=== PATIENT | female | born 1980 | race Hispanic/Latino ===

== ENCOUNTER 2017-09-17 12:16 | Emergency (ER) | payer SELFPAY ==
[~2017-09-17] VITALS: Ht 157.5 cm; Wt 49.0 kg
[2017-09-17] MEDS ORDERED: LIDOCAINE HCL 1% LOCAL INJ 20 ML VIAL INJ ONE (12:45)
[2017-09-17 13:32] VITALS: BP 112/69
== END 2017-09-17 13:40 | disposition home or self-care (01) ==
LOC: ER 12:16
DX: N76.4 Abscess of vulva (principal); E11.9 Type 2 diabetes mellitus without complications
CPT/HCPCS: 56405; 99282; J2001

== ENCOUNTER 2017-09-20 11:32 | Emergency (ER) | payer SELFPAY ==
[~2017-09-20] VITALS: Ht 157.5 cm; Wt 49.0 kg
== END 2017-09-20 13:16 | disposition home or self-care (01) ==
LOC: ER 11:32
DX: Z48.01 Encounter for change or removal of surgical wound dressing (principal); E11.9 Type 2 diabetes mellitus without complications; F17.210 Nicotine dependence, cigarettes, uncomplicated
CPT/HCPCS: 99282

== ENCOUNTER 2018-01-22 12:12 | Inpatient (IN) | payer SELFPAY ==
[~2018-01-22] VITALS: Ht 157.5 cm; Wt 45.4 kg
[2018-01-22] VITALS (24 sets, daily range): BP systolic 80–106; BP diastolic 48–75
[2018-01-22] MEDS ORDERED: ACETAMINOPHEN 325 MG TAB PO ONE (13:00)
[2018-01-22 13:02] LABS: BASOPHILS # (AUTO) 0.1 (0.0-0.1); BASOPHILS % 0.3 % (0.0-1.0); HEMATOCRIT 34.6 % (34.2-44.1); HEMOGLOBIN 12.4 g/dL (12.0-16.0); LYMPHOCYTES # (AUTO) 1.2 (1.0-3.2); LYMPHOCYTES % 4.7 % (18.0-39.1); MEAN CORPUSCULAR HEMOGLOBIN 31.9 pg (28-32); MEAN CORPUSCULAR HGB CONC 35.8 g/dL (31-35); MEAN CORPUSCULAR VOLUME 88.9 fL (81-99); MONOCYTES # (AUTO) 0.6 (0.2-0.8); MONOCYTES % 2.4 % (4.4-11.3); NEUTROPHILS # (AUTO) 24.2 (2.1-6.9); NEUTROPHILS % 91.4 % (38.7-80.0); PLATELET COUNT 274 x10e3/uL (140-360); RED BLOOD COUNT 3.89 x10e6/uL (3.6-5.1); RED CELL DISTRIBUTION WIDTH 11.1 % (11.7-14.4)
[2018-01-22 13:06] LABS: BILIRUBIN,URINE NEGATIVE (NEGATIVE); CLARITY,URINE HAZY (CLEAR); COLOR,URINE YELLOW (YELLOW); KETONES,URINE 2+ (NEGATIVE); LEUKOCYTE ESTERASE ,URINE 1+ (NEGATIVE); NITRITE,URINE NEGATIVE (NEGATIVE); PROTEIN,URINE DIPSTICK 1+ (NEGATIVE); URINE UROBILINOGEN 0.2 mg/dL (0.2 - 1)
[2018-01-22 13:07] LABS: PREGNANCY TEST, URINE NEGATIVE (NEGATIVE)
[2018-01-22 13:09] LABS: WBC,URINE (MAN) >50 /HPF (0-5)
[2018-01-22 13:10] LABS: BACTERIA,URINE MANY /HPF; EPITHELIAL CELLS,URINE FEW /LPF; MUCUS,URINE MODERATE (RARE)
[2018-01-22 13:11] LABS: TRICHOMONAS,URINE RARE
[2018-01-22 13:12] LABS: YEAST,URINE FEW
[2018-01-22 13:26] LABS: ALANINE AMINOTRANSFERASE 50 IU/L (0-55); ALBUMIN 2.8 g/dL (3.5-5.0); ALBUMIN/GLOBULIN RATIO 0.4 (0.8-2.0); ALKALINE PHOSPHATASE 170 IU/L (40-150); ANION GAP 16.9 mmol/L (8-16); BLOOD UREA NITROGEN 11 mg/dL (7-26); BUN/CREATININE RATIO 13 (6-25); CALCIUM 9.8 mg/dL (8.4-10.2); CARBON DIOXIDE 25 mmol/L (22-29); CHLORIDE 91 mmol/L (98-107); CREATININE, SERUM 0.85 mg/dL (0.57-1.11); EST GLOMERULAR FILTRATION RATE > 60 ML/MIN (60-); POTASSIUM 3.9 mmol/L (3.5-5.1); SODIUM 129 mmol/L (136-145)
[2018-01-22 13:28] LABS: GLUCOSE 452 mg/dL (74-118)
[2018-01-22 13:30] LABS: BAND NEUTROPHILS % (MANUAL) 1 %; LYMPHOCYTES % (MANUAL) 7 % (19-48); MONOCYTES % (MANUAL) 4 % (3.4-9.0); NEUTROPHILS % (MANUAL) 86 % (40-74); PLATELET ESTIMATE ADEQUATE; PLATELET MORPHOLOGY COMMENT NORMAL; RBC MORPHOLOGY COMMENT NORMAL
[2018-01-22] MEDS ORDERED: SODIUM CHLORIDE 0.9% 1000ML 1,000 ML IV ONE (13:30)
--- NOTE | 2018-01-22 13:30 | NUR ---
PT REPORT RECEIVED FROM JEANNE LANGSTON. PT CARE ASSUMED
[2018-01-22] MEDS ORDERED: IBUPROFEN 600 MG TAB PO ONE (14:00)
[2018-01-22] MEDS ORDERED: AZTREONAM 1 GM/NS 50 ML 50 ML IV SCH (14:00)
[2018-01-22] MEDS ORDERED: FLUCONAZOLE 100 MG TAB PO ONE (14:00)
[2018-01-22] MEDS ORDERED: METRONIDAZOLE 500MG/NS 100ML 100 ML IV SCH (14:00)
[2018-01-22] MEDS ORDERED: INSULIN REGULAR, HUMAN 100 UNIT/1 ML 3ML VIAL IV ONE (14:15)
--- NOTE | 2018-01-22 14:20 | NUR ---
Dr. Ant De La Cruz here at this time, assessing pt.
[2018-01-22] MEDS ORDERED: DEXTROSE 50% SYRINGE 50 ML IV PRN (14:30)
[2018-01-22] MEDS ORDERED: ONDANSETRON HCL INJ 2MG/ML 2ML 2 MG/ML VIAL IV PRN (14:30)
[2018-01-22] MEDS: SODIUM CHLORIDE 0.9% 1000ML 1,000 ML IV SCH (14:37)
--- NOTE | 2018-01-22 14:58 | Diagnostic Imaging Report ---
EXAMINATION: PA and lateral views of the chest. COMPARISON: None CLINICAL HISTORY: Sepsis, numbness in arms, fever DISCUSSION: Lines/tubes: None. Lungs: The lungs are well inflated and clear. There is no evidence of pneumonia or pulmonary edema. Pleura: There is no pleural effusion or pneumothorax. Heart and mediastinum: Cardiomediastinal silhouette is unremarkable. Pulmonary vasculature is normal. Bones and soft tissues: No acute bony abnormalities. IMPRESSION: No acute cardiopulmonary abnormalities. Signed by: Dr. Philip Diana M.D. on 01/22/2018 2:55 PM
--- NOTE | 2018-01-22 15:19 | NUR ---
2ND IV LINE STARTED FOR INSULIN DRIP
[2018-01-22] MEDS: MORPHINE SULFATE 2 MG/ML SYR 1ML IV PRN ×2 (16:11→19:56)
[2018-01-22] MEDS: INSULIN REGULAR, HUMAN 3ML VL 100 UNIT in SODIUM CHLORIDE 0.9% 99 ML IV SCH ×2 (16:11)
[2018-01-22] MEDS ORDERED: SODIUM CHLORIDE 0.9% 500ML 500 ML IV ONE (17:15)
--- NOTE | 2018-01-22 17:56 | History and Physical ---
CHIEF COMPLAINT: Numbness in the arms and legs. HISTORY OF PRESENT ILLNESS: The patient is a 37-year-old woman with a history of diabetes and recurrent Bartholin cyst. She has been feeling feverish over the last couple of days. She also reports some numbness in her arm and leg. She notes some drainage from labia on the right side and says she has had Bartholin cyst before that she has drained herself. She arrived in the ER and had a temperature of 102.1. Her pulse was 122. She was found to have a white blood cell count of 26 along with a blood sugar of 452 and elevated anion gap. PAST MEDICAL HISTORY 1. Diabetes. 2. Genital herpes. 3. Bartholin cyst in the past. PAST SURGICAL HISTORY: Status post drainage of the Bartholin cyst. FAMILY HISTORY: Noncontributory. ALLERGIES: THE PATIENT IS ALLERGIC TO PENICILLIN. REVIEW OF SYSTEMS: The patient has fevers. She has no headache. She has no neck pain. She is not having any chest pain. She has no difficulty breathing. She is not complaining of abdominal pain, nausea, or vomiting. She does note some numbness and pain in her right hand as well as in her right leg. She notes some drainage from her labia. PHYSICAL EXAMINATION VITAL SIGNS: The patient is afebrile, but had previous fever of 102.1. Her pulse is 122. HEENT: Shows no facial swelling or erythema. The nasal mucosa is normal. The oropharynx is normal. LYMPHATIC: Shows no submandibular, cervical, or supraclavicular adenopathy. NECK: Shows no JVD or thyromegaly. There is no nuchal rigidity. CARDIOVASCULAR: Reveals regular rate and rhythm with normal S1 and S2. There are no murmurs or rubs. RESPIRATORY: Auscultation of the lungs revealed clear breath sounds bilaterally. There is no wheezing. ABDOMEN: Soft and nontender. There is no rebound or guarding. EXTREMITIES: There is no leg edema or calf tenderness. There is no cyanosis or clubbing. SKIN: Shows no rashes. NEUROLOGIC: Shows no focal abnormalities. LABORATORY DATA: White blood cell count in the urine is greater than 50. The white blood cell count is 26.5 and hemoglobin is 12.4. The platelet count is 274. The sodium is 129 and the carbon dioxide is 25. The chloride is 91 and anion gap is elevated at 16. RADIOGRAPHIC DATA: Chest x-ray shows no acute disease. ASSESSMENT 1. Severe sepsis secondary to urinary source. 2. Diabetic ketoacidosis. 3. Bartholin cyst with spontaneous drainage. PLAN 1. Patient will be admitted to the intensive care unit. 2. Aggressive IV fluids. 3. Insulin drip with close monitoring of blood sugars and electrolytes. 4. Begin full-spectrum antibiotics. 5. Gynecology consult for drainage of the Bartholin cyst. Job#: [id number] TRAE
--- NOTE | 2018-01-22 17:56 | NUR ---
admitted to 192 from er per stretcher. walked to bed from stretcher. connected to monitors. pt has pink flat small lesions on extremities, torso. rt labia c small amount of dk red drainage from abscess which pt states she punctured because of pain. states she has had an abscess drained previously at the hospital, and it came back causing her pain. labia are pale c whitish secretions. #20 g sl to lac (for atbs), #18 g to left wrist for mainline iv and insulin drip. the perineum and buttocks areas have excoriations. oriented to surroundings and care.
--- NOTE | 2018-01-22 18:10 | NUR ---
family at bedside
--- NOTE | 2018-01-22 18:55 | NUR ---
report to oncoming nurse
[2018-01-22] MEDS: ACYCLOVIR SODIUM IV SCH (19:00)
[2018-01-22] MEDS: SODIUM CHLORIDE 0.9% IV SCH (19:00)
--- NOTE | 2018-01-22 19:04 | NUR ---
notified human factors ergonomist physician for dr. cabrera who stated to call dr cabrera on wednesday, as this physician does not have priviledges at this hospital
--- NOTE | 2018-01-22 19:10 | NUR ---
notified dr asif of pt s admission. states he was notified by er and has already seen pt
--- NOTE | 2018-01-22 20:35 | Consultation ---
DATE OF CONSULTATION: January 22, 2018 INFECTIOUS DISEASE CONSULTATION ATTENDING PHYSICIAN: Dr. Ag De La Cruz. REASON FOR CONSULTATION: Sepsis. Thank you, Dr. De La Cruz for asking me to see this patient. CLINICAL HISTORY: The patient is a 37-year-old woman, referred for sepsis. She presented to emergency department with fever associated with generalized joint pain. Also, she has started noticing water blisters. Patient denies cough, shortness of breath, nausea, vomiting, abdominal pain, and dysuria. The patient has genital herpes and has developed new blisters in the past 4 days and started taking acyclovir 1 g orally daily. She does not recall HIV screening in the past and has switched boyfriends. PAST MEDICAL HISTORY: Diabetes mellitus type 2 and genital herpes. PAST SURGICAL HISTORY: section. ALLERGIES: PENICILLIN WHICH CAUSED RASH. MEDICATIONS: See MAR. The current antibiotics are aztreonam 1 g IV piggyback q.12 hours, vancomycin 1 g IV piggyback q.12 hours, and metronidazole 500 mg IV piggyback q.8 hours. Patient also received fluconazole in the emergency room. IMMUNIZATIONS: Patient has not received influenza vaccine this season. FAMILY HISTORY: Significant for diabetes mellitus in her father. SOCIAL HISTORY: She claimed that she cut down smoking to 1 or 2 cigarettes a week. She claimed that she used to smoke 5 cigarettes a day in the past. Also, she claimed that she cut down drinking to 1 beer a week, she used to drink 5 beers in a sitting usually on weekends. REVIEW OF SYSTEMS: As per history of present illness. PHYSICAL EXAMINATION GENERAL: Acutely ill. VITAL SIGNS: T-max 102.1, pulse 102, respiratory rate 18, blood pressure 102/67, and weight 100 pounds. HEENT: Normocephalic. There is no icterus or injection of conjunctivae. There is no ear or nasal discharge. Moist oral mucosa. No pharyngeal erythema or exudate. NECK: Supple. No lymphadenopathy. LUNGS: Good air entry bilaterally. HEART: Normal S1 and S2. ABDOMEN: Normal bowel sounds in all 4 quadrants. Soft and nontender. EXTREMITIES: There is no clubbing, or cyanosis. There is swilling with mild tenderness on palpation of the wrists bilaterally, but no effusion of the joints. The dorsalis pedis and posterior tibial pulses are palpable. SKIN: There are multiple tiny blisters on red base on the limbs and upper chest. There are also some lesions on the palm. CHIEF FISHERY DIVISION: Awake, alert, and oriented to person, place, and time. Sensation is normal to monofilament test of the feet. Nonfocal. LABORATORY AND DIAGNOSTICS: WBC 26,530, hemoglobin 12.4, platelet 274,000, neutrophils 91.4, lymph 4.7, mono 2.4, eosinophils 0, and basophils 0.3. BUN 11, creatinine 0.85, blood glucose 264 (down from 452). AST 46, ALT 50, alk phos 170, total bilirubin 0.7, total protein 9.1, albumin 2.8, globulin 6.3. Urinalysis is abnormal with wbc's greater than 50 and rbc's 11 to 20. Influenza antigen test is negative. Chest x-ray showed no evidence of pneumonia or pulmonary edema. IMPRESSION 1. Sepsis. 2. ?Chickenpox versus disseminated herpes simplex, type 2. 3. Diabetes mellitus type 2, uncontrolled. 4. Tobacco use disorder. PLAN 1. Check HIV screen and culture results. 2. Stop vancomycin and metronidazole. Start acyclovir 5 mg/kg IV piggyback q.8 hours. Change Azactam to 1 g IV piggyback q.8 hours. Patient should receive influenza vaccine prior to discharge. 3. Smoking cessation counseling was provided to the patient. 4. Airborne isolation. Job#: [id number] LAKIA SMITH
[2018-01-22] MEDS ORDERED: VANCOMYCIN 1GM/NS 250 ML 250 ML IV SCH (21:00)
[2018-01-22] MEDS: AZTREONAM 1 GM/NS 50 ML 50 ML IV SCH (22:15)
[2018-01-22 23:48] LABS: BASOPHILS # (AUTO) 0.1 (0.0-0.1); BASOPHILS % 0.3 % (0.0-1.0); EOSINOPHILS # (AUTO) 0.1 (0.0-0.4); EOSINOPHILS % 0.4 % (0.0-6.0); HEMATOCRIT 27.5 % (34.2-44.1); HEMOGLOBIN 9.7 g/dL (12.0-16.0); LYMPHOCYTES # (AUTO) 1.4 (1.0-3.2); LYMPHOCYTES % 7.2 % (18.0-39.1); MEAN CORPUSCULAR HGB CONC 35.3 g/dL (31-35); MEAN CORPUSCULAR VOLUME 90.8 fL (81-99); MONOCYTES # (AUTO) 0.8 (0.2-0.8); MONOCYTES % 4.1 % (4.4-11.3); NEUTROPHILS # (AUTO) 16.9 (2.1-6.9); NEUTROPHILS % 86.9 % (38.7-80.0); PLATELET COUNT 185 x10e3/uL (140-360); RED BLOOD COUNT 3.03 x10e6/uL (3.6-5.1); RED CELL DISTRIBUTION WIDTH 11.2 % (11.7-14.4)
[2018-01-23] VITALS (68 sets, daily range): BP systolic 85–134; BP diastolic 58–96
[2018-01-23 00:10] LABS: ALANINE AMINOTRANSFERASE 49 IU/L (0-55); ALBUMIN/GLOBULIN RATIO 0.4 (0.8-2.0); ALKALINE PHOSPHATASE 123 IU/L (40-150); BLOOD UREA NITROGEN 15 mg/dL (7-26); BUN/CREATININE RATIO 22 (6-25); CARBON DIOXIDE 22 mmol/L (22-29); CHLORIDE 104 mmol/L (98-107); CREATININE, SERUM 0.67 mg/dL (0.57-1.11); EST GLOMERULAR FILTRATION RATE > 60 ML/MIN (60-); GLUCOSE 211 mg/dL (74-118); SODIUM 135 mmol/L (136-145)
[2018-01-23 00:22] LABS: CALCIUM 8.2 mg/dL (8.4-10.2)
[2018-01-23] MEDS: SODIUM CHLORIDE 0.9% 1000ML 1,000 ML IV SCH ×4 (00:28→19:41)
[2018-01-23] MEDS: ACYCLOVIR SODIUM IV SCH ×3 (00:38→17:39)
[2018-01-23] MEDS: SODIUM CHLORIDE 0.9% IV SCH ×3 (00:38→17:39)
[2018-01-23 04:54] LABS: BASOPHILS % 0.1 % (0.0-1.0); EOSINOPHILS # (AUTO) 0.2 (0.0-0.4); EOSINOPHILS % 0.9 % (0.0-6.0); HEMATOCRIT 27.5 % (34.2-44.1); HEMOGLOBIN 9.4 g/dL (12.0-16.0); LYMPHOCYTES # (AUTO) 1.5 (1.0-3.2); LYMPHOCYTES % 8.4 % (18.0-39.1); MEAN CORPUSCULAR HEMOGLOBIN 31.4 pg (28-32); MEAN CORPUSCULAR HGB CONC 34.2 g/dL (31-35); MONOCYTES % 5.6 % (4.4-11.3); NEUTROPHILS # (AUTO) 14.5 (2.1-6.9); PLATELET COUNT 192 x10e3/uL (140-360); RED BLOOD COUNT 2.99 x10e6/uL (3.6-5.1); RED CELL DISTRIBUTION WIDTH 11.5 % (11.7-14.4)
[2018-01-23 05:14] LABS: ANION GAP 11.3 mmol/L (8-16); BLOOD UREA NITROGEN 14 mg/dL (7-26); BUN/CREATININE RATIO 23 (6-25); CALCIUM 8.2 mg/dL (8.4-10.2); CARBON DIOXIDE 23 mmol/L (22-29); CHLORIDE 104 mmol/L (98-107); EST GLOMERULAR FILTRATION RATE > 60 ML/MIN (60-); GLUCOSE 110 mg/dL (74-118); POTASSIUM 3.3 mmol/L (3.5-5.1); SODIUM 135 mmol/L (136-145)
[2018-01-23] MEDS: AZTREONAM 1 GM/NS 50 ML 50 ML IV SCH ×3 (06:14→21:07)
[2018-01-23] MEDS: MORPHINE SULFATE 2 MG/ML SYR 1ML IV PRN (08:09)
[2018-01-23] MEDS: INSULIN REGULAR, HUMAN 3ML VL 100 UNIT in SODIUM CHLORIDE 0.9% 99 ML IV SCH ×6 (10:06→14:51)
--- NOTE | 2018-01-23 10:13 | NUR ---
Consult called to Dr Franklin for wrist pain.
--- NOTE | 2018-01-23 10:22 | NUR ---
Spoke with Faisal with answering service for Dr Franklin regarding consult.
[2018-01-23] MEDS ORDERED: POTASSIUM CHLORIDE 20 MEQ TAB CR PO ONE (10:30)
--- NOTE | 2018-01-23 10:50 | Diagnostic Imaging Report ---
Exam: Right wrist Series. History: Right wrist pain Comparison: None. Findings: 3 views of the right wrist. There is normal bone mineralization. Negative for acute, displaced fracture or dislocation. The joint spaces are normal. No abnormal soft tissue calcification or mass. No soft tissue swelling. Impression: 1. No acute abnormalities. Signed by: Dr. Philip Diana M.D. on 01/23/2018 10:46 AM
--- NOTE | 2018-01-23 10:50 | Diagnostic Imaging Report ---
Exam: Right Hand Series. History: Right and pain Comparison: None. Findings: 3 views of the right hand. There is normal bone mineralization. Negative for acute, displaced fracture or dislocation. The joint spaces are normal. No abnormal soft tissue calcification or mass. No cystic erosive changes.No soft tissue swelling. Impression: 1. No acute abnormalities. Signed by: Dr. Philip Diana M.D. on 01/23/2018 10:47 AM
[2018-01-23] MEDS: INSULIN LISPRO 100 UNIT/1 ML 3ML VIAL SQ SCH ×2 (14:43→21:03)
[2018-01-23 14:47] LABS: FREE T4 (FREE THYROXINE) 0.99 ng/dL (0.9-1.8); THYROID STIMULATING HORMONE 0.782 uIU/mL (0.350-4.940)
[2018-01-23] MEDS: HYDROCODONE/APAP 5MG-325MG TAB PO PRN (15:08)
[2018-01-23] MEDS ORDERED: KETOROLAC TROMETHAMINE 30 MG/ML VIAL IV ONE (15:30)
--- NOTE | 2018-01-23 17:00 | NUR ---
Insulin gtt off per Dr Mosley. Per IVIS Correa, consult for Dafashy must be called Wednesday a.m. per the assistant golf professional physician. territory account executive made aware.
--- NOTE | 2018-01-23 18:29 | Consultation ---
DATE OF CONSULTATION: January 23, 2018 ENDOCRINE CONSULTATION PATIENT OF: Dr. De La Cruz. Thank you very much for referring this patient. HISTORY OF PRESENT ILLNESS: This is a 37-year-old female who is referred to me for evaluation of diabetes mellitus. Patient is a known diabetic for almost 9 years and was on oral hypoglycemics in the past. She has not taken any medications for diabetes because she does not have an insurance for a year or so. She came to the hospital this time with history of severe joint pains, fever, nausea, vomiting and further evaluation of blood sugar was found to be 452, anion gap was 16.9. Patient admitted to the hospital for further evaluation. Patient also has some sepsis and also some labial infection, probably related to herpes. PHYSICAL EXAMINATION GENERAL: Today, the patient is alert, awake, a little bit apprehensive. VITAL SIGNS: Heart rate is around 78, blood pressure 130/80. HEENT: Essentially unremarkable. Thyroid is barely palpable. Clinically, she is near euthyroid. CHEST: Diminished bilateral vesicular breathing. She has mild bronchospasm. CARDIAC: Both 1st and 2nd heart sounds. There is no 3rd or 4th heart sound. Ejection sound 3/6. EXTREMITIES: Patient has tenderness in both wrist joints. LABS: The blood sugars presently are in the ranges of 114 to 229. CLINICAL IMPRESSION 1. Diabetes mellitus type 2. 2. Diabetic ketoacidosis. 3. Joint pains. 4. Arthritis. 5. Sepsis. 6. Vulvar yeast or herpes zoster infection. PLAN: The plan at this time is to advance her diet, taper off the insulin dose, put her on the subcu insulin combination, Levemir and Humalog. We will also do a hemoglobin A1c and thyroid function test. Thanks for referring this patient. I will be following the patient with you. Job#: [id number] LAKIA SMITH
[2018-01-23] MEDS ORDERED: INSULIN DETEMIR 100 UNIT/ML PEN SQ SCH (21:00)
[2018-01-24] VITALS (27 sets, daily range): BP systolic 108–141; BP diastolic 79–98
[2018-01-24] MEDS: ACYCLOVIR SODIUM IV SCH ×2 (00:01→09:14)
[2018-01-24] MEDS: SODIUM CHLORIDE 0.9% IV SCH ×2 (00:01→09:14)
[2018-01-24 04:50] LABS: BASOPHILS % 0.1 % (0.0-1.0); EOSINOPHILS # (AUTO) 0.1 (0.0-0.4); EOSINOPHILS % 1.5 % (0.0-6.0); HEMOGLOBIN 8.8 g/dL (12.0-16.0); LYMPHOCYTES # (AUTO) 0.8 (1.0-3.2); LYMPHOCYTES % 9.1 % (18.0-39.1); MEAN CORPUSCULAR HEMOGLOBIN 31.5 pg (28-32); MEAN CORPUSCULAR HGB CONC 33.8 g/dL (31-35); MEAN CORPUSCULAR VOLUME 93.2 fL (81-99); MONOCYTES # (AUTO) 0.6 (0.2-0.8); MONOCYTES % 7.1 % (4.4-11.3); NEUTROPHILS # (AUTO) 7.2 (2.1-6.9); NEUTROPHILS % 81.6 % (38.7-80.0); PLATELET COUNT 193 x10e3/uL (140-360); RED BLOOD COUNT 2.79 x10e6/uL (3.6-5.1); RED CELL DISTRIBUTION WIDTH 11.8 % (11.7-14.4)
[2018-01-24] MEDS: AZTREONAM 1 GM/NS 50 ML 50 ML IV SCH (05:18)
[2018-01-24] MEDS: SODIUM CHLORIDE 0.9% 1000ML 1,000 ML IV SCH (05:19)
[2018-01-24 05:31] LABS: ALANINE AMINOTRANSFERASE 51 IU/L (0-55); ALBUMIN 1.9 g/dL (3.5-5.0); ALBUMIN/GLOBULIN RATIO 0.4 (0.8-2.0); ALKALINE PHOSPHATASE 165 IU/L (40-150); ANION GAP 12.2 mmol/L (8-16); BLOOD UREA NITROGEN 14 mg/dL (7-26); BUN/CREATININE RATIO 26 (6-25); CALCIUM 8.1 mg/dL (8.4-10.2); CARBON DIOXIDE 20 mmol/L (22-29); CHLORIDE 106 mmol/L (98-107); CREATININE, SERUM 0.54 mg/dL (0.57-1.11); EST GLOMERULAR FILTRATION RATE > 60 ML/MIN (60-); GLUCOSE 117 mg/dL (74-118); POTASSIUM 3.2 mmol/L (3.5-5.1); SODIUM 135 mmol/L (136-145)
--- NOTE | 2018-01-24 06:46 | NUR ---
Consult for Dr. Powers called. Reached voicemail and left callback number for the doctor to call back.
[2018-01-24] MEDS: INSULIN LISPRO 100 UNIT/1 ML 3ML VIAL SQ SCH ×5 (07:30→20:35)
[2018-01-24] MEDS ORDERED: MORPHINE SULFATE INJ 4 MG/ML INJ 1ML IV PRN (09:00)
[2018-01-24] MEDS: HYDROCODONE/APAP 5MG-325MG TAB PO PRN ×2 (09:15→14:32)
[2018-01-24] MEDS ORDERED: POTASSIUM CHLORIDE 20 MEQ TAB CR PO ONE (09:20)
[2018-01-24] MEDS ORDERED: MAGNESIUM OXIDE 400 MG TAB PO ONE (09:20)
--- NOTE | 2018-01-24 09:43 | NUR ---
MD White paged, returned call. Asked if pt could be downgraded to MS, stated that he needs to see pt first, and that he will be at [facility] in the afternoon. FABIAN Jhaveri notified. Addendum: 01/24/18 at 1050 by Gordon Arora RN Wrong pt
[2018-01-24] MEDS ORDERED: CEFTRIAXONE SOD 1 GM VIAL IV SCH (12:45)
[2018-01-24] MEDS ORDERED: CEFTRIAXONE SOD 1 GM/NS 50 ML 50 ML IV SCH (13:00)
--- NOTE | 2018-01-24 14:20 | NUR ---
MD Powers paged for consult over weekend and Wednesday AM per night RN , once again in am 1000 by day RN, no response. MD Ant De La Cruz agreed to switch to MD Johnson. Nurse sr. manager Michael paged MD Johnson, states that he is in surgery. Awaiting response.
[2018-01-24] MEDS: CEFTRIAXONE SOD 2 GM/NS 100 ML 100 ML IV SCH (14:32)
[2018-01-24] MEDS ORDERED: SODIUM CHLORIDE 0.9% 250ML 250 ML ONE (16:05)
--- NOTE | 2018-01-24 18:43 | NUR ---
Nutrition Intervention Note RD Recommendation for Physician: -Continue ADA diet as medically appropriate -Rec Glucerna BID to promote protein-calorie intake -Encourage PO and hydration -Rec referral for outpatient diabetes management The patient meets criteria for unspecified SEVERE protein-calorie malnutrition. Plan of Care: RD following, monitoring for tolerance and adequacy, diet education Nutrition reason for involvement: RN Consult no reason stated Primary Diagnose(s): DKA, sepsis, vulvar yeast or herpes zoster infection PMH: 1. Diabetes. 2. Genital herpes. 3. Bartholin cyst in the past. Ht: 62in Wt: 100lb 01/22 admit wt 108lb 08/2017 135lb 06/2017 BMI: 18.3kg/m2 IBW: 110lb RD Assessment: (01/24) Chart reviewed. Labs and meds reviewed. 37yo F who is admitted for DKA. During my assessment, pt reports of eating less than usual since since May 2017. Pt reports of fair appetite in the hospital with ~50-75% PO intake recorded by RN. No complain of N/V/D or abdominal pain. LBM 01/22. Pt denies any chewing or swallowing difficulty. Pt reports of some weight loss since May 2017. Looking back at her previous admissions, pt has lost ~35lb in the last 6 months (~26% weight loss in 6 months). Pt reports of weight loss due to her DM. Provided diet education on DM. Will continue to monitor and follow. Current Diet: ADA diet Malnutrition Evaluation (01/24/18) The patient meets criteria for unspecified SEVERE protein-calorie malnutrition. 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 Diet Education Needs Assessment: Diet education indicated and patient agreeable. Method: handouts, explanations Topics: CHO counting for diabetes, label reading, s/s of hyperglycemia / hypoglycemia Understanding/Compliance: Pt understood. All questions have been answered. Goal: Patient will meet 75-100% of estimated needs by follow up Progress: Progressing Interventions: Carbohydrate modified diet, Commercial beverage, Survival information, Recommended Modifications, Skill Development Monitoring/Evaluation: Total energy intake, Total protein intake, Modified diet, Liquid supplement, Weight change, Ability to recall nutrition goals, Level of knowledge, Self management Nutrition Care Level: high Signed: Erica Schneider, MS, RD, LD
--- NOTE | 2018-01-24 19:21 | NUR ---
Nutrition Intervention Note RD Recommendation(s) for Physician: Plan of Care: -Continue regular diet as medically appropriate -Rec Ensure compact TID to promote protein-calorie intake -Rec MVi w/ minerals and vitamin C for wound healing -Encourage PO and hydration The patient meets criteria for MILD protein-calorie malnutrition. Nutrition reason for involvement: Nutrition Risk Trigger MST RD Assessment: 01/24 - Chart reviewed. 74 yo female who is admitted for constipation. 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 Pt presents with some residual left hemiparesis from her strokes. Daughter presents on bedside to provide hx. 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 However, appetite has improved today with observed ~40-50% PO intake. Pt denies any N/V or abdominal pain. Constipation was relieved with medication. Pt denies any chewing or swallowing difficulty. Some weight loss reported. Looking at her previous admissions, pt has lost ~3lbs in the last 3 months. ~2.3% weight loss in 3 months, which is insignificant. NFPA showed temporal depression, otherwise unremarkable. Pt has some swelling on her hands. Will continue to monitor and follow. Principal Problems/Diagnoses: 1. Acute on chronic renal failure stage 3. 2. Constipation. PMH: Type 2 diabetes mellitus, HTN, CVA, neurologic residual, urinary retention, CKD III GI: LBM 01/24 Skin: stage II pressure wound on R buttock per chart Labs: (01/24) K 3.3 L, Creat 1.42 H, Glucose 129 H, Ca 7.8 L, Mg 2.4 H Meds: (01/24) pepcid, plavix, KCl, Lasix Ht: 60in Wt: 10/2017 126lb admit weight 01/24/2018 123lb admit weight BMI: 23.9kg/m2 IBW: 100lb Malnutrition Evaluation (01/24/18) The patient meets criteria for MILD protein-calorie malnutrition. Energy intake: <50% of estimated energy requirements for >5 days Weight loss: ~2.3% weight loss in 3 months, which is insignificant. Fat loss: Mild - somewhat hollow around orbital Muscle loss: Mild depression on temporal region Supporting Evidence: Fluid accumulation: mild-moderate: swelling on hands Functional Status: no changes Nutrition Prescription (Diet Order): regular diet Diet Adequacy: Not meeting calorie needs, Not meeting protein needs Diet Education Needs Assessment: Diet education not indicated; patient on regular diet. Nutrition Care Level: low Nutrition Diagnosis: Inadequate oral intake related to chronic illness as evidenced by poor PO intake <50% and some recent weight loss. Goal: Patient will meet 75-100% of estimated needs by follow up Progress: Progressing Interventions: General healthful diet, Commercial beverage, Commercial, Multivitamin/mineral supplement therapy Monitoring/Evaluation: Total energy intake, Total protein intake, diet, Liquid supplement, Weight change Signed: Erica Schneider, MS, RD, LD
--- NOTE | 2018-01-24 19:22 | NUR ---
PLEASE DISREGARD THE LAST NOTE. THIS IS THE CORRECT NOTE. Nutrition Intervention Note RD Recommendation for Physician: - Continue ADA diet as medically appropriate - Rec Glucerna BID to promote protein-calorie intake - Encourage PO and hydration - Rec referral for outpatient diabetes management The patient meets criteria for unspecified SEVERE protein-calorie malnutrition. Plan of Care: RD following, monitoring for tolerance and adequacy, diet education Nutrition reason for involvement: RN Consult no reason stated Primary Diagnose(s): DKA, sepsis, vulvar yeast or herpes zoster infection PMH: 1. Diabetes. 2. Genital herpes. 3. Bartholin cyst in the past. Ht: 62in Wt: 100lb 01/22 admit wt 108lb 08/2017 135lb 06/2017 BMI: 18.3kg/m2 IBW: 110lb RD Assessment: (01/24) Chart reviewed. Labs and meds reviewed. 37yo F who is admitted for DKA. During my assessment, pt reports of eating less than usual since since May 2017. Pt reports of fair appetite in the hospital with ~50-75% PO intake recorded by RN. No complain of N/V/D or abdominal pain. LBM 01/22. Pt denies any chewing or swallowing difficulty. Pt reports of some weight loss since May 2017. Looking back at her previous admissions, pt has lost ~35lb in the last 6 months (~26% weight loss in 6 months). Pt reports of weight loss due to her DM. Provided diet education on DM. Will continue to monitor and follow. Current Diet: ADA diet Malnutrition Evaluation (01/24/18) The patient meets criteria for unspecified SEVERE protein-calorie malnutrition. 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 Method: handouts, explanations Topics: CHO counting for diabetes, label reading, s/s of hyperglycemia / hypoglycemia Understanding/Compliance: Pt understood. All questions have been answered. Goal: Patient will meet 75-100% of estimated needs by follow up Progress: Progressing Interventions: Carbohydrate modified diet, Commercial beverage, Survival information, Recommended Modifications, Skill Development Monitoring/Evaluation: Total energy intake, Total protein intake, Modified diet, Liquid supplement, Weight change, Ability to recall nutrition goals, Level of knowledge, Self management Nutrition Care Level: high Signed: Erica Schneider, MS, RD, LD
[2018-01-24] MEDS: INSULIN DETEMIR 100 UNIT/ML PEN SQ SCH (20:38)
[2018-01-25] VITALS (19 sets, daily range): BP systolic 114–155; BP diastolic 81–103
[2018-01-25 04:56] LABS: BASOPHILS % 0.2 % (0.0-1.0); EOSINOPHILS # (AUTO) 0.1 (0.0-0.4); HEMATOCRIT 27.1 % (34.2-44.1); LYMPHOCYTES # (AUTO) 0.9 (1.0-3.2); LYMPHOCYTES % 14.9 % (18.0-39.1); MEAN CORPUSCULAR HEMOGLOBIN 30.7 pg (28-32); MEAN CORPUSCULAR HGB CONC 33.2 g/dL (31-35); MEAN CORPUSCULAR VOLUME 92.5 fL (81-99); MONOCYTES # (AUTO) 0.5 (0.2-0.8); MONOCYTES % 8.5 % (4.4-11.3); NEUTROPHILS # (AUTO) 4.3 (2.1-6.9); NEUTROPHILS % 75.1 % (38.7-80.0); PLATELET COUNT 239 x10e3/uL (140-360); RED BLOOD COUNT 2.93 x10e6/uL (3.6-5.1); RED CELL DISTRIBUTION WIDTH 11.8 % (11.7-14.4)
[2018-01-25 05:25] LABS: ALANINE AMINOTRANSFERASE 64 IU/L (0-55); ALBUMIN 1.9 g/dL (3.5-5.0); ALBUMIN/GLOBULIN RATIO 0.4 (0.8-2.0); ALKALINE PHOSPHATASE 245 IU/L (40-150); ANION GAP 10.4 mmol/L (8-16); BLOOD UREA NITROGEN 9 mg/dL (7-26); BUN/CREATININE RATIO 16 (6-25); CALCIUM 8.4 mg/dL (8.4-10.2); CARBON DIOXIDE 24 mmol/L (22-29); CHLORIDE 104 mmol/L (98-107); CREATININE, SERUM 0.57 mg/dL (0.57-1.11); EST GLOMERULAR FILTRATION RATE > 60 ML/MIN (60-); GLUCOSE 194 mg/dL (74-118); MAGNESIUM 1.9 MG/DL (1.3-2.1); PHOSPHORUS 3.6 MG/DL (2.3-4.7); POTASSIUM 3.4 mmol/L (3.5-5.1); SODIUM 135 mmol/L (136-145)
[2018-01-25] MEDS: INSULIN LISPRO 100 UNIT/1 ML 3ML VIAL SQ SCH ×7 (07:30→21:00)
[2018-01-25] MEDS ORDERED: POTASSIUM CHLORIDE 20 MEQ TAB CR PO NR (08:30)
[2018-01-25] MEDS: HYDROCODONE/APAP 5MG-325MG TAB PO PRN (08:37)
[2018-01-25] MEDS ORDERED: CEFTRIAXONE SOD 1 GM VIAL IV SCH ×2 (09:00)
[2018-01-25 11:31] LABS: HIV 1&2 AB SCREEN ***REACTIVE*** (NONREACTIVE)
--- NOTE | 2018-01-25 13:32 | NUR ---
MD Marinelli paged to notify of negative UPT, awaiting response and orders
[2018-01-25] MEDS: CEFTRIAXONE SOD 2 GM/NS 100 ML 100 ML IV SCH (14:15)
--- NOTE | 2018-01-25 16:02 | NUR ---
GAVE PACKET OF INFORMATION WITH COMMUNITY RESOURCES FOR ASSISTANCE WITH LOW TO NO INCOME TO PATIENT. RESOURCES THAT PATIENT MAY BE ABLE TO FOLLOW UP UPON DISCHARGE. PT EDUCATED ON EACH RESOURCE AND UNDERSTANDING HOW TO FOLLOW UP TO SEE IF QUALIFIED FOR EACH RESOURCE.
--- NOTE | 2018-01-25 19:12 | Consultation ---
DATE OF CONSULTATION: January 25, 2018 REASON FOR CONSULTATION: The patient is a 37-year-old 1, para 1 who was admitted to the hospital with diabetic ketoacidosis. Her last menstrual period was 3 weeks ago. She is on no contraception. Consultation was done because the patient had a Bartholin abscess, and she was also septic at the time of the DKA and found to be anemic. The patient reports that she has had the Bartholin abscess for a few days and just before she came to the hospital she was applying heat to it and it ruptured open and pus drained. The patient states she has never had this before. She denied any previous sexually transmitted diseases except for she had herpes 7 years ago. PAST MEDICAL HISTORY: Her medical history is remarkable for type 1 diabetes and in the past she did have gestational diabetes. PAST SURGICAL HISTORY: Remarkable only for primary in October 2010 for gestational diabetes, Class A2, at 38 weeks. SOCIAL HISTORY: The patient smokes 1-2 cigarettes per day. She was 10-15 cigarettes per day in the past, but has cut down recently. She denies any IV drug abuse. She reports that she has had no alcohol for approximately a month, but prior to that time she was drinking approximately 24 beers per week, almost entirely on the weekend, which she would have 12 beers per day, each weekend day. The patient is in the hospital being treated for her DKA and she is greatly improved. PHYSICAL EXAMINATION VITAL SIGNS: Her T max was 99.2, pulse 88, respirations 16, blood pressure 125/84. VULVA EXAM: On limited exam of the vulva, she had an area of slight edema in the right posterior vulva consistent with ruptured Bartholin abscess. There was no longer tenderness present and there was no drainage from the area. There was no need for any abscess drainage at this time. LABORATORY DATA: White count 5.7, hemoglobin 9.0, hematocrit 27.1, platelets 234,000, 75 segs, 25 lymphs. Sodium 135. Potassium 3.4. Chloride 109. Bicarb 24. Glucose 194. Creatinine 0.57. BUN 9. AST 61, ALT 64, alkaline phosphatase 245. Current antibiotic is Rocephin switched from aztreonam once the likelihood of disseminated gonorrhea was entertained. Her blood culture is positive for gram-negative Diplococci, which is grown out as neisseria gonorrhoeae with beta lactamase positive. Her HIV is positive. Further followup studies are pending. IMPRESSION: 1. Ruptured Bartholin abscess in a patient with disseminated gonorrhea bacteremia. 2. Diabetic ketoacidosis. 3. Anemia with sepsis. PLAN: The antibiotics given should keep her Bartholin in remission. At this point, she may later require marsupialization. Her bigger concerns are for the disseminated gonorrhea and for positive HIV. Thank you for this consult. If there is anything else I can help you with, please do not hesitate to contact me. JIN FLANAGAN MD Job#: [id number] GH
[2018-01-25] MEDS: INSULIN DETEMIR 100 UNIT/ML PEN SQ SCH (21:00)
[2018-01-25] MEDS: DOXYCYCLINE 100MG/NS 100ML 100 ML IV SCH (21:23)
[2018-01-26] VITALS (10 sets, daily range): BP systolic 117–140; BP diastolic 76–91
[2018-01-26] MEDS: DOXYCYCLINE 100MG/NS 100ML 100 ML IV SCH ×2 (05:35→16:52)
--- NOTE | 2018-01-26 07:04 | NUR ---
Received patient mid fowlers position, side rails upx2, call light within reach. AAOX4 to time, person, place, situation. Respirations even and unlabored. Instructed patient to use call light for assistance. Voiced understanding.
[2018-01-26] MEDS: INSULIN LISPRO 100 UNIT/1 ML 3ML VIAL SQ SCH ×7 (07:30→21:30)
[2018-01-26] MEDS: CEFTRIAXONE SOD 2 GM/NS 100 ML 100 ML IV SCH (12:41)
--- NOTE | 2018-01-26 12:55 | NUR ---
Aircraft Seat Upholsterer to bedside to discuss plan of care with patient/family. CM/SW role and care transitions discussed. Anticipated discharge plan discussed along with duration of care. CM/SW discussed patients right to make decisions in care. CM/SW work hours given. Patient lives: alone Admit/Transfer: Admit in ED, came from home POA/Emergency contact: sister Nilo Sadler at [phone] Current/Previous Home Health: none PCP/Follow-up Care: Dr. Correia Current/Previous DME: none Other Services: none Employment Status: employed with [employer] Areas of Concerns: n/a Referral Needs: n/a Education Needs: none at this time IMM/SARKAR given and signed (if applicable): n/a Goal for discharge: home, her mom will provide transportation CM/SW left business card at the bedside with contact information. Name and number was also written on the patients whiteboard. Patient verbalized understanding of discussion. CM will follow-up with ongoing discharge and transition of care needs.
--- NOTE | 2018-01-26 14:30 | Progress Note ---
DATE: January 26, 2018 PULMONARY/CRITICAL CARE PROGRESS NOTE SUBJECTIVE: The patient feels better but she still has some pain in her wrists. She still has some blisters on the volar surface of her hands and wrists. The macular rash on her legs has improved. OBJECTIVE VITAL SIGNS: The patient is afebrile. The vital signs are stable. HEENT: Shows no facial swelling or erythema. Nasal mucosa is normal. The oropharynx is normal. LYMPHATIC: Shows no submandibular, cervical or supraclavicular adenopathy. CARDIAC: Regular rate and rhythm with normal S1 and S2. There are no murmurs or rubs. LUNGS: Auscultation of lungs reveals clear breath sounds bilaterally. No wheezing. ABDOMEN: Is soft and nontender. There is no rebound or guarding. EXTREMITIES: Shows no leg edema or calf tenderness. There is some tenderness and swelling in the wrists bilaterally. IMPRESSION: 1. Neisseria gonorrhoeae bacteremia with severe sepsis that was present on admission. 2. Diabetic ketoacidosis. 3. Herpes simplex. 4. Hypokalemia. 5. Hypomagnesemia. PLAN: 1. Continue current antibiotics and discussed duration of treatment with infectious disease. 2. Continue Lantus insulin along with Lispro prior to meals. 3. Infectious disease following 4. Monitor blood counts. 5. Monitor electrolytes. Job#: [id number] GH MTDD
--- NOTE | 2018-01-26 19:14 | NUR ---
Report given to oncoming nurse. NO s/s of acute distress noted.
--- NOTE | 2018-01-26 19:25 | NUR ---
Patient received sitting up in bed. Family at bedside. AAO x 3. No c/o pain. No signs of respiratory distress. Bed locked and in lowest position. Bed rails up x 2. Patient instructed to call for assistance when needed. Call light within reach.
[2018-01-26] MEDS: INSULIN DETEMIR 100 UNIT/ML PEN SQ SCH (21:30)
[2018-01-27] VITALS (7 sets, daily range): BP systolic 110–154; BP diastolic 71–96
[2018-01-27] MEDS: DOXYCYCLINE 100MG/NS 100ML 100 ML IV SCH ×2 (05:32→17:32)
--- NOTE | 2018-01-27 06:58 | NUR ---
Patient resting comfortably. Shift report given to oncoming nurse.
--- NOTE | 2018-01-27 07:02 | NUR ---
Received patient mid fowlers position, side rails upx2, call light within reach. Resting with eyes closed. Arousable to verbal stimuli. Respirations even and unlabored. Will continue to monitor.
[2018-01-27] MEDS: INSULIN LISPRO 100 UNIT/1 ML 3ML VIAL SQ SCH ×7 (07:30→21:00)
--- NOTE | 2018-01-27 10:10 | NUR ---
aware of blood culture results. No new orders
--- NOTE | 2018-01-27 10:15 | NUR ---
ORQUIDEA spoke with Dr. Marinelli. He stated that he is waiting for HIV panel and CD4 count results. Once results come back, pt should be finished with IV abx and can transition to PO Doxycycline at home.
[2018-01-27] MEDS: CEFTRIAXONE SOD 2 GM/NS 100 ML 100 ML IV SCH (14:00)
[2018-01-27] MEDS ORDERED: POTASSIUM CHLORIDE 20 MEQ TAB CR PO SCH ×2 (16:00→16:15)
--- NOTE | 2018-01-27 16:41 | Consultation ---
DATE OF CONSULTATION: January 24, 2018 CHIEF COMPLAINT: Multiple areas of joint pains. HISTORY OF PRESENT ILLNESS: The patient is a 37-year-old lady who was admitted to the intensive care unit for urosepsis. She was complaining of pain in both wrists, both elbows and both knees. Orthopedic consultation was requested. The patient denies any recent history of trauma. She denies any recent puncture wounds or abrasions near any of these joints. PAST MEDICAL HISTORY: See admission H and P. PHYSICAL EXAMINATION GENERAL: She is awake, alert and oriented, and in no obvious distress. EXTREMITIES: There is mild swelling, but no erythema in both wrists. There is no appreciable swelling in the elbows or the knees. She has well-preserved range of motion in all of these joints. There is no severe point tenderness in any of these joints. There is no evidence of skin abrasions. LABORATORY STUDIES: X-rays show normal bone anatomy of the right wrist. White blood cell count is not elevated. IMPRESSION: Multiple arthralgias secondary to recent urosepsis. At this time, I see no evidence of any septic joint. I will follow along as she undergoes treatment. My expectation of any developing specific septic joint is low. Thank you for the consultation. Job#: [id number] HUGO
--- NOTE | 2018-01-27 19:00 | NUR ---
Report given to oncoming nurse of patient's status. No s/s of acute distress noted.
--- NOTE | 2018-01-27 19:26 | NUR ---
Patient received lying in bed. AAO x 3. No acute distress noted. Call light within reach.
[2018-01-27] MEDS: INSULIN DETEMIR 100 UNIT/ML PEN SQ SCH (21:00)
[2018-01-28] VITALS (7 sets, daily range): BP systolic 118–132; BP diastolic 75–86
[2018-01-28] MEDS: DOXYCYCLINE 100MG/NS 100ML 100 ML IV SCH ×2 (06:18→18:30)
--- NOTE | 2018-01-28 07:06 | NUR ---
received pt lying in bed with eyes closed, Resp even and unlabored. call light within reach.
--- NOTE | 2018-01-28 07:27 | NUR ---
Shift report given to oncoming nurse.
[2018-01-28] MEDS: INSULIN LISPRO 100 UNIT/1 ML 3ML VIAL SQ SCH ×7 (07:30→21:10)
[2018-01-28 08:47] LABS: BASOPHILS % 0.4 % (0.0-1.0); EOSINOPHILS # (AUTO) 0.1 (0.0-0.4); EOSINOPHILS % 2.6 % (0.0-6.0); HEMATOCRIT 31.2 % (34.2-44.1); HEMOGLOBIN 10.5 g/dL (12.0-16.0); LYMPHOCYTES # (AUTO) 0.8 (1.0-3.2); MEAN CORPUSCULAR HEMOGLOBIN 31.4 pg (28-32); MEAN CORPUSCULAR HGB CONC 33.7 g/dL (31-35); MEAN CORPUSCULAR VOLUME 93.4 fL (81-99); MONOCYTES # (AUTO) 0.5 (0.2-0.8); MONOCYTES % 9.1 % (4.4-11.3); NEUTROPHILS # (AUTO) 3.5 (2.1-6.9); NEUTROPHILS % 70.1 % (38.7-80.0); PLATELET COUNT 385 x10e3/uL (140-360); RED BLOOD COUNT 3.34 x10e6/uL (3.6-5.1); RED CELL DISTRIBUTION WIDTH 11.3 % (11.7-14.4)
[2018-01-28 08:58] LABS: BLOOD UREA NITROGEN 8 mg/dL (7-26); BUN/CREATININE RATIO 14 (6-25); CALCIUM 8.8 mg/dL (8.4-10.2); CARBON DIOXIDE 26 mmol/L (22-29); CHLORIDE 104 mmol/L (98-107); CREATININE, SERUM 0.59 mg/dL (0.57-1.11); EST GLOMERULAR FILTRATION RATE > 60 ML/MIN (60-); GLUCOSE 217 mg/dL (74-118); SODIUM 137 mmol/L (136-145)
[2018-01-28] MEDS: CEFTRIAXONE SOD 2 GM/NS 100 ML 100 ML IV SCH (14:59)
--- NOTE | 2018-01-28 15:27 | NUR ---
Nutrition Intervention Note RD Recommendation for Physician: - Continue ADA diet as medically appropriate - Rec referral for outpatient diabetes management - Diabetes education was provided on 01/24 The patient meets criteria for unspecified SEVERE protein-calorie malnutrition. Plan of Care: RD following, monitoring for tolerance and adequacy, diet education Nutrition reason for involvement: Follow up, MD consult access protein/calorie intake, diabetic teaching Primary Diagnose(s): DKA, sepsis, vulvar yeast or herpes zoster infection PMH: 1. Diabetes. 2. Genital herpes. 3. Bartholin cyst in the past. Ht: 62in Wt: 100lb 01/22 admit wt 108lb 08/2017 135lb 06/2017 BMI: 18.3kg/m2 IBW: 110lb RD Assessment: 01/28 - Chart reviewed. Labs and meds reviewed. Pt is awake, alert and in no acute distress during my visit. Pt reports good appetite with 100% PO intake, which has improved since I last visited her. No GI complains at this time. All questions have been answered when I provided diabetic education during my last visit. Will continue to monitor and follow. (01/24) Chart reviewed. Labs and meds reviewed. 37yo F who is admitted for DKA. During my assessment, pt reports of eating less than usual since since May 2017. Pt reports of fair appetite in the hospital with ~50-75% PO intake recorded by RN. No complain of N/V/D or abdominal pain. LBM 01/22. Pt denies any chewing or swallowing difficulty. Pt reports of some weight loss since May 2017. Looking back at her previous admissions, pt has lost ~35lb in the last 6 months (~26% weight loss in 6 months). Pt reports of weight loss due to her DM. Provided diet education on DM. Will continue to monitor and follow. Current Diet: ADA diet Malnutrition Evaluation (01/24/18) The patient meets criteria for unspecified SEVERE protein-calorie malnutrition. Energy intake: <50% of estimated energy requirements for >5 days Weight loss: >10% in 6 months (Chronic) Fat loss: mild moderate: orbital with dark [place], somewhat hollow, some fat loss over triceps Muscle loss: mild moderate: some protrusion of clavicle Estimated Nutritional Needs: Calories: 1500-1750kcal (30-35kcal/kg/d) Weight used : IBW Protein : 75-100g(1.5-2g/kg/d) Weight used: IBW Diet Adequacy: Meeting protein needs, meeting calorie needs. 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 Diet Education Needs Assessment: Diet education indicated and patient agreeable. Method: handouts, explanations Topics: CHO counting for diabetes, label reading, s/s of hyperglycemia / hypoglycemia Understanding/Compliance: Pt understood. All questions have been answered. Goal: Patient will meet 75-100% of estimated needs by follow up Progress: Goal met Interventions: Carbohydrate modified diet, Commercial beverage, Survival information, Recommended Modifications, Skill Development Monitoring/Evaluation: Total energy intake, Total protein intake, Modified diet, Liquid supplement, Weight change, Ability to recall nutrition goals, Level of knowledge, Self management Nutrition Care Level: low Signed: Erica Schneider, MS, RD, LD
--- NOTE | 2018-01-28 19:28 | NUR ---
Patient received sitting in chair with family present. AAO x 3. No c/o pain. No signs of respiratory distress. Call light within reach.
[2018-01-28] MEDS ORDERED: INSULIN DETEMIR 100 UNIT/ML PEN SQ SCH (21:00)
[2018-01-29] VITALS (7 sets, daily range): BP systolic 120–137; BP diastolic 71–85
[2018-01-29] MEDS: DOXYCYCLINE 100MG/NS 100ML 100 ML IV SCH (06:21)
--- NOTE | 2018-01-29 07:11 | NUR ---
received pt sitting up on recliner at bedside with TV on. denies pain, Resp even and unlabored. call light within reach.
[2018-01-29] MEDS: INSULIN LISPRO 100 UNIT/1 ML 3ML VIAL SQ SCH ×7 (09:12→21:00)
[2018-01-29] MEDS: CEFTRIAXONE SOD 2 GM/NS 100 ML 100 ML IV SCH (17:49)
[2018-01-29] MEDS: INSULIN DETEMIR 100 UNIT/ML PEN SQ SCH (21:50)
[2018-01-30] MEDS: DOXYCYCLINE 100MG/NS 100ML 100 ML IV SCH ×2 (05:45→18:25)
[2018-01-30 07:40] VITALS: BP 134/83
[2018-01-30] MEDS: INSULIN LISPRO 100 UNIT/1 ML 3ML VIAL SQ SCH ×7 (08:21→20:48)
[2018-01-30 08:28] VITALS: BP 134/83
[2018-01-30] MEDS: HYDROCODONE/APAP 5MG-325MG TAB PO PRN (09:39)
[2018-01-30 12:24] VITALS: BP 114/70
[2018-01-30] MEDS: CEFTRIAXONE SOD 2 GM/NS 100 ML 100 ML IV SCH (14:50)
[2018-01-30 17:43] VITALS: BP 121/71
[2018-01-30 20:43] VITALS: BP 140/82
[2018-01-30] MEDS: INSULIN DETEMIR 100 UNIT/ML PEN SQ SCH (20:48)
[2018-01-31 00:48] VITALS: BP 114/74
[2018-01-31] MEDS: DOXYCYCLINE 100MG/NS 100ML 100 ML IV SCH ×2 (05:36→18:17)
[2018-01-31 06:15] VITALS: BP 117/70
[2018-01-31 08:41] LABS: BASOPHILS % 0.3 % (0.0-1.0); EOSINOPHILS # (AUTO) 0.2 (0.0-0.4); EOSINOPHILS % 2.3 % (0.0-6.0); HEMATOCRIT 36.1 % (34.2-44.1); HEMOGLOBIN 12.1 g/dL (12.0-16.0); LYMPHOCYTES % 15.3 % (18.0-39.1); MEAN CORPUSCULAR HEMOGLOBIN 31.7 pg (28-32); MEAN CORPUSCULAR HGB CONC 33.5 g/dL (31-35); MEAN CORPUSCULAR VOLUME 94.5 fL (81-99); MONOCYTES # (AUTO) 0.4 (0.2-0.8); MONOCYTES % 5.9 % (4.4-11.3); NEUTROPHILS # (AUTO) 4.8 (2.1-6.9); NEUTROPHILS % 75.1 % (38.7-80.0); PLATELET COUNT 447 x10e3/uL (140-360); RED BLOOD COUNT 3.82 x10e6/uL (3.6-5.1)
[2018-01-31 08:48] VITALS: BP 120/72
[2018-01-31 09:00] LABS: ANION GAP 13.6 mmol/L (8-16); BLOOD UREA NITROGEN 11 mg/dL (7-26); BUN/CREATININE RATIO 15 (6-25); CARBON DIOXIDE 26 mmol/L (22-29); CHLORIDE 101 mmol/L (98-107); CREATININE, SERUM 0.71 mg/dL (0.57-1.11); EST GLOMERULAR FILTRATION RATE > 60 ML/MIN (60-); GLUCOSE 241 mg/dL (74-118); POTASSIUM 3.6 mmol/L (3.5-5.1); SODIUM 137 mmol/L (136-145)
[2018-01-31] MEDS: INSULIN LISPRO 100 UNIT/1 ML 3ML VIAL SQ SCH ×4 (09:30→17:30)
[2018-01-31 10:00] VITALS: BP 120/72
[2018-01-31] MEDS ORDERED: DOXYCYCLINE HY100 MG PO (10:17)
[2018-01-31 12:25] VITALS: BP 148/65
--- NOTE | 2018-01-31 13:50 | NUR ---
SPOKE EXTENSIVELY WITH PATIENT ABOUT BLUE BOOK AND RESOURCES WITHIN COMMUNITY. ADVISED THE DIFFERENT PLACES TO GO FOR ASSISTANCE FOR MEDICAL AND FINANCIAL WITH [facility] AND THE DIFFERENT CLINICS AND BENEFITS OF EACH. PT STATES SHE UNDERSTOOD AND WILL FOLLOW UP APPROPRIATELY.
--- NOTE | 2018-01-31 14:03 | NUR ---
SPOKE WITH DR. MAYO REGARDING UPDATING PT ON DIAGNOSIS, PLAN OF CARE, AND RESOURCES. MD INSTRUCTED HE HAD ALREADY UPDATED PATIENT ON CURRENT DIAGNOSIS AND RESOURCES TO OBTAIN ONCE DISCHARGED FROM THE FACILITY.
[2018-01-31] MEDS ORDERED: INSULIN LISPRO 100 UNIT/1 ML 3ML VIAL SQ SCH (16:30)
--- NOTE | 2018-01-31 16:30 | NUR ---
RECEIVED CALL FROM DR. Ant CRUZ TO DISCHARGE PATIENT HOME. ALSO TO INFORM PATIENT TO GET NPH INSULIN, AND REGULAR INSULIN, OVER THE COUNTER, TO INJECT SUB-CUTANEOUSLY 10 UNITS OF NPH BEFORE BREAKFAST, AND 10 UNITS NPH BEFORE DINNER. THE REGULAR INSULIN SHE IS TO GIVE 6 UNITS BEFORE BREAKFAST, 6 UNITS BEFORE LUNCH, AND 6 UNITS BEFORE DINNER.
--- NOTE | 2018-01-31 20:38 | NUR ---
PATIENT DISCHARGED HOME VERBALIZED UNDERSTANDING OF D/C INSTRUCTIONS. IV ACCESS DISCONTINUED PRIOR TO D/C PRESCRIPTION FOR DOXYCYCLINE 100MG PO GIVEN TO PATIENT, INSTRUCTED TO BUY NPH AND REGULAR INSULIN OVER THE COUNTER, PATIENT VERBALIZED UNDERSTANDING. ESCORTED PATIENT VIA WHEEL CHAIR TO MEET RIDE IN FRONT OF HOSPITAL.
[2018-01-31] MEDS ORDERED: INSULIN DETEMIR 100 UNIT/ML PEN SQ SCH (21:00)
== END 2018-01-31 20:57 | disposition home or self-care (01) | DRG 871 ==
LOC: ER 12:12 → ERHOLD 14:28 → ICU 18:00 → MED/SURG2 01-25 19:38
PROVIDERS: ADMIT Internal Medicine Critical Care Medicine; ATTEND Internal Medicine Critical Care Medicine
DX: A54.86 Gonococcal sepsis (principal); E11.10 Type 2 diabetes mellitus with ketoacidosis without coma; N75.1 Abscess of Bartholin's gland; N30.01 Acute cystitis with hematuria; E87.1 Hypo-osmolality and hyponatremia; B00.7 Disseminated herpesviral disease; R65.20 Severe sepsis without septic shock; F17.210 Nicotine dependence, cigarettes, uncomplicated; E87.6 Hypokalemia; E83.42 Hypomagnesemia; Z88.0 Allergy status to penicillin; Z83.3 Family history of diabetes mellitus; B00.1 Herpesviral vesicular dermatitis; L50.1 Idiopathic urticaria; Z21 Asymptomatic human immunodeficiency virus [HIV] infection status
CPT/HCPCS: 36415; 71046; 80048; 80053; 81001; 81025; 82948; 83036; 83605; 83735; 84100; 84439; 84443; 85025; 86361; 86592; 86689; 87040; 87071; 87086; 87186; 87205; 87390; 87400; 87536; 96361; 96366; 96372; 99285; G0433; G0435; J0696; J1885; J2270; J3370; J7030; J7040; J7050

== ENCOUNTER 2020-09-17 11:21 | Emergency (ER) | payer MEDICARE ==
[~2020-09-17] VITALS: Ht 157.5 cm; Wt 45.4 kg
[~2020-09-17 11:21] MED LIST: DOXYCYCLINE HY100 MG PO
[2020-09-17 12:06] LABS: BASOPHILS # (AUTO) 0.1 (0.0-0.1); BASOPHILS % 0.4 % (0.0-1.0); EOSINOPHILS # (AUTO) 0.2 (0.0-0.4); EOSINOPHILS % 1.4 % (0.0-6.0); HEMATOCRIT 39.2 % (34.2-44.1); HEMOGLOBIN 13.9 g/dL (12.0-16.0); LYMPHOCYTES # (AUTO) 1.5 (1.0-3.2); LYMPHOCYTES % 13.4 % (18.0-39.1); MEAN CORPUSCULAR HEMOGLOBIN 33.7 pg (28-32); MEAN CORPUSCULAR HGB CONC 35.5 g/dL (31-35); MEAN CORPUSCULAR VOLUME 95.1 fL (81-99); MONOCYTES # (AUTO) 0.6 (0.2-0.8); NEUTROPHILS # (AUTO) 9.1 (2.1-6.9); NEUTROPHILS % 79.5 % (38.7-80.0); PLATELET COUNT 263 x10e3/uL (140-360); RED BLOOD COUNT 4.12 x10e6/uL (3.6-5.1); RED CELL DISTRIBUTION WIDTH 11.8 % (11.7-14.4)
[2020-09-17 12:29] LABS: ALBUMIN 3.8 g/dL (3.5-5.0); ALBUMIN/GLOBULIN RATIO 0.9 (0.8-2.0); ANION GAP 12.9 mmol/L (8-16); CALCIUM 8.9 mg/dL (8.4-10.2); CREATININE, SERUM 0.84 mg/dL (0.57-1.11); POTASSIUM 3.9 mmol/L (3.5-5.1)
[2020-09-17] MEDS ORDERED: SODIUM CHLORIDE 0.9% 50ML 50 ML ONE (12:54)
[2020-09-17] MEDS ORDERED: IOPAMIDOL 300MG/ML 100 ML INFUS..BTL IV ONE (12:54)
[2020-09-17] MEDS ORDERED: IOPAMIDOL 370 MG/ML 200 ML INFUS..BTL INJ ONE (12:55)
[2020-09-17 16:39] VITALS: BP 122/71
== END 2020-09-17 16:39 | disposition home or self-care (01) ==
LOC: ER 13:05
DX: R13.10 Dysphagia, unspecified (principal); E11.9 Type 2 diabetes mellitus without complications
CPT/HCPCS: 36415; 70491; 80053; 85025; 99284; Q9967

== ENCOUNTER 2021-06-30 19:27 | Emergency (ER) | payer MEDICARE, OTHER ==
[~2021-06-30] VITALS: Ht 157.5 cm; Wt 45.4 kg
[2021-06-30] MEDS ORDERED: SODIUM CHLORIDE 0.9% 1000ML 1,000 ML IV STA (19:42)
[2021-06-30] MEDS ORDERED: SODIUM CHLORIDE 0.9% 1000ML 1,000 ML ONE (19:56)
[2021-06-30] MEDS ORDERED: ONDANSETRON HCL INJ 2MG/ML 2ML 2 MG/ML VIAL IV STA (19:56)
[2021-06-30] MEDS ORDERED: ONDANSETRON HCL INJ 2MG/ML 2ML 2 MG/ML VIAL ONE (19:56)
[2021-06-30] MEDS ORDERED: ACETAMINOPHEN 325 MG TAB PO STA (19:57)
[2021-06-30 20:11] LABS: BASOPHILS % 0.3 % (0.0-1.0); EOSINOPHILS % 0.1 % (0.0-6.0); HEMATOCRIT 39.5 % (34.2-44.1); HEMOGLOBIN 13.9 g/dL (12.0-16.0); LYMPHOCYTES # (AUTO) 1.2 (1.0-3.2); LYMPHOCYTES % 8.4 % (18.0-39.1); MEAN CORPUSCULAR HEMOGLOBIN 33.8 pg (28-32); MEAN CORPUSCULAR HGB CONC 35.2 g/dL (31-35); MEAN CORPUSCULAR VOLUME 96.1 fL (81-99); MONOCYTES # (AUTO) 0.9 (0.2-0.8); MONOCYTES % 6.3 % (4.4-11.3); NEUTROPHILS # (AUTO) 12.2 (2.1-6.9); NEUTROPHILS % 84.4 % (38.7-80.0); PLATELET COUNT 289 x10e3/uL (140-360); RED BLOOD COUNT 4.11 x10e6/uL (3.6-5.1); RED CELL DISTRIBUTION WIDTH 11.4 % (11.7-14.4)
[2021-06-30 20:34] LABS: ALBUMIN 2.9 g/dL (3.5-5.0); ALBUMIN/GLOBULIN RATIO 0.5 (0.8-2.0); ANION GAP 21.4 mmol/L (8-16); CREATININE, SERUM 0.78 mg/dL (0.57-1.11); POTASSIUM 3.4 mmol/L (3.5-5.1)
[2021-06-30 21:23] LABS: CLARITY,URINE CLOUDY (CLEAR); COLOR,URINE YELLOW (YELLOW); LEUKOCYTE ESTERASE ,URINE 1+ (NEGATIVE); NITRITE,URINE POSITIVE (NEGATIVE); PROTEIN,URINE DIPSTICK 2+ (NEGATIVE)
[2021-06-30 21:24] LABS: KETONES,URINE 2+ (NEGATIVE); URINE UROBILINOGEN 0.2 mg/dL (0.2 - 1)
[2021-06-30 21:37] LABS: BACTERIA,URINE MODERATE /HPF; EPITHELIAL CELLS,URINE FEW /LPF; WBC,URINE (MAN) >50 /HPF (0-5); YEAST,URINE FEW
[2021-06-30] MEDS ORDERED: IOPAMIDOL 370 MG/ML 100 ML INFUS..BTL INJ ONE (22:28)
[2021-06-30] MEDS ORDERED: CIPROFLOXACIN 500 MG TAB PO STA (23:52)
[2021-06-30] MEDS ORDERED: CIPRO500 MG PO (23:58)
[2021-07-01] MEDS ORDERED: ONDANSETRON ODT4 MG PO
== END 2021-07-01 | disposition home or self-care (01) ==
LOC: ER 19:37
DX: R10.33 Periumbilical pain (principal); N12 Tubulo-interstitial nephritis, not specified as acute or chronic; R11.2 Nausea with vomiting, unspecified; E11.65 Type 2 diabetes mellitus with hyperglycemia; Z20.822 Contact with and (suspected) exposure to COVID-19
CPT/HCPCS: 36415; 74177; 80053; 81001; 81025; 83605; 83690; 85025; 87040; 99284; J2405; J7030; Q9967; U0002

== ENCOUNTER 2021-12-28 15:16 | Emergency (ER) | payer MEDICARE, OTHER ==
[~2021-12-28] VITALS: Ht 157.5 cm; Wt 45.4 kg
[~2021-12-28 15:16] MED LIST changes: +CIPRO500 MG PO; +ONDANSETRON ODT4 MG PO
== END 2021-12-28 15:41 | disposition home or self-care (01) ==
LOC: ER 15:25
DX: R50.9 Fever, unspecified (principal); J11.1 Influenza due to unidentified influenza virus with other respiratory manifestations; M54.50 Low back pain, unspecified; E11.9 Type 2 diabetes mellitus without complications; B20 Human immunodeficiency virus [HIV] disease
CPT/HCPCS: 99282